=== PATIENT | female | born 1970 | race Caucasian/White ===

== ENCOUNTER 2016-12-10 10:08 | Day surgery (SDC) | payer OTHER ==
[~2016-12-10 10:08] MED LIST: CEFAZOLIN SODIUM 2 GRAM PREMIX 100 ML IV PRN
[2016-12-10] MEDS ORDERED: IV START KIT ONE (10:14)
[2016-12-10] MEDS ORDERED: LACTATED RINGERS 1,000 ML ONE ×2 (10:14→14:07)
[2016-12-10] MEDS ORDERED: CEFAZOLIN SODIUM 2 GRAM PREMIX 100 ML IV ONE (10:15)
[2016-12-10] MEDS ORDERED: SODIUM CHLORIDE 0.9% 50 ML ONE (10:42)
[2016-12-10] MEDS ORDERED: IOPAMIDOL 300 (61%) 30 ML SDV ONE (10:42)
[2016-12-10] MEDS ORDERED: BUPIVACAINE 0.5% W/EPI SDV 30 ML VIAL ONE (10:42)
[2016-12-10] MEDS ORDERED: MIDAZOLAM HCL 5 MG/5 ML VIAL ONE (10:45)
[2016-12-10] MEDS ORDERED: FENTANYL 5 ML ONE (10:45)
[2016-12-10] MEDS ORDERED: SCOPOLAMINE 1.5 MG/72 HR 1 EACH PATCH TD ONE (10:46)
[2016-12-10] MEDS ORDERED: PROMETHAZINE HCL 25 MG/ML VIAL IM PRN (11:15)
[2016-12-10] MEDS ORDERED: LACTATED RINGERS 1,000 ML IV SCH (11:15)
[2016-12-10] MEDS ORDERED: ONDANSETRON 4 MG/2ML 2 ML VIAL IV PRN ×2 (11:15→13:09)
[2016-12-10] MEDS ORDERED: NALOXONE HCL 0.4 MG/ML VIAL IV PRN (11:15)
[2016-12-10] MEDS ORDERED: ATROPINE SULFATE 0.4 MG/1 ML VIAL IV PRN (11:15)
[2016-12-10] MEDS ORDERED: PROPOFOL 20 ML IV ONE (11:25)
[2016-12-10] MEDS ORDERED: ROCURONIUM BROMIDE 10 MG/ML DOSE IV ONE (11:25)
[2016-12-10] MEDS ORDERED: DEXAMETHASONE SOD PHOS 4 MG/1 ML VIAL ONE (11:25)
[2016-12-10] MEDS ORDERED: FAMOTIDINE 10 MG/ML 2ML VIAL ONE (11:25)
[2016-12-10] MEDS ORDERED: NEOSTIGMINE METHYLSULFATE 1 MG/ML DOSE ONE (11:36)
[2016-12-10] MEDS ORDERED: GLYCOPYRROLATE 0.2 MG/ML 1ML VIAL ONE (11:36)
[2016-12-10] MEDS ORDERED: FENTANYL 100 MCG/2 ML VIAL ONE ×2 (11:55→12:35)
[2016-12-10] MEDS ORDERED: SURGICEL 3X4 1 EACH PACKET ONE (12:07)
--- NOTE | 2016-12-10 12:07 | RAD ---
Exam: Intraoperative cholangiogram COMPARISON: CT 11/12/2016 and ultrasound 11/09/2016 INDICATION: Intraoperative cholangiogram performed following cholecystectomy. Findings: Fluoroscopy was provided for Dr. Kuhn. 13.4 seconds of fluoroscopy time was utilized. 4 static images were sent for interpretation. These images demonstrate cholecystectomy clips. The common bile duct is normal in caliber and contour and no filling defects are identified. Visualized intrahepatic biliary tree is also normal. Contrast is seen within the duodenum. IMPRESSION: Fluoroscopy was provided for Dr. Kuhn for intraoperative cholangiogram.
[2016-12-10] MEDS ORDERED: PROMETHAZINE HCL 25 MG/ML VIAL ONE (12:35)
[2016-12-10] MEDS ORDERED: HYDROMORPHONE HCL 1 MG/ML SYRINGE ONE (12:35)
[2016-12-10] MEDS: FENTANYL 100 MCG/2 ML VIAL IV PRN ×2 (12:37→12:53)
[2016-12-10] MEDS: HYDROMORPHONE HCL 1 MG/ML SYRINGE IV PRN ×2 (12:40→13:13)
--- NOTE | 2016-12-10 12:57 | OP ---
Ruth Ray [id number] DATE: 12/10/2016 PREOPERATIVE DIAGNOSIS: Chronic cholecystitis and cholelithiasis. POSTOPERATIVE DIAGNOSIS: Chronic cholecystitis and cholelithiasis. PROCEDURE: Laparoscopic cholecystectomy with intraoperative cholangiogram. SURGEON: Hermann Kuhn M.D. EXECUTIVE CHAIRMAN: Fer. ANESTHESIA: Joe Brooks, general endotracheal. INDICATION: This is a 45-year-old female who has symptoms of chronic biliary colic who presents for elective cholecystectomy. DESCRIPTION: With informed consent she was taken to the operating room where she was laid supine on the table. General endotracheal anesthetic was administered. The abdomen was prepped and draped in the usual fashion. Local anesthetic was administered in a scar below the umbilicus. Incision was made. The fascia was grasped with Noah clamps and divided with curved Luna scissors. Suture of Surgilon placed on the fascial edges and a Stewart port was placed. A pneumoperitoneum was created. Local anesthetic was administered in the mid epigastrium and along the right lateral abdominal wall. Incisions were made and 5 mm ports were placed. There were adhesions of the gallbladder that were taken down with blunt dissection. The fundus was grasped and retracted cephalad. There seemed to be a large stone down in the infundibulum, this was retracted laterally. There was quite a bit of fat attached in around the cystic structures. Eventually I was able to dissect the cystic duct free circumferentially. A clip was placed. The duct was partially transected. Cholangiogram was obtained showing flow of contrast into the duodenum without filling defect. Contrast was seen refluxing up into the hepatic ducts. The catheter was removed. Two clips were placed on the cystic duct stump and was completed transected. The cystic artery was identified and dissected free. Three clips were placed and it was transected leaving two clips on the stump. The gallbladder was then taken off the liver bed using electrocautery, this was moderately difficult with gallbladder up underneath the liver with some fatty infiltration around it. We did get some bleeding from the liver bed It was not clear if it was a posterior branch off the cystic artery or an aberrant cystic artery up higher in the liver bed. Multiple clips were placed. Eventually we had good hemostasis. The gallbladder was from the liver. We did have a small amount of spillage of bile from the gallbladder. Once it was it was placed within an Endocatch bag and removed through the infraumbilical port site. During the bleeding from the aberrant vessel along the liver bed we did lose approximately 200 mL of blood. This was suctioned and diluted until all irrigation was clear. I did choose to put some Surgicel in the area in case there was some residual oozing. The ports were removed and the pneumoperitoneum was evacuated. The infraumbilical fascial defect was closed with figure of eight sutures of 0 Surgilon. The other fascial defects were small. All the skin wounds were closed with subcuticular 4-0 Monocryl. Dermabond was placed over all incisions because of a tape allergy. She tolerated her procedure and was taken to the recovery room in stable condition. Note was made that needle, instrument, and lap counts were reported as correct at the time of closure. JOB: [id number] CC: Dr. Debbie Tamayo
[2016-12-10] MEDS ORDERED: MORPHINE SULFATE 2 MG/ML SYRINGE IV PRN (13:09)
[2016-12-10] MEDS ORDERED: OXYCODONE HCL 5 MG TABLET PO PRN (13:09)
[2016-12-10] MEDS ORDERED: ACETAMINOPHEN 325 MG TABLET PO PRN (13:09)
[2016-12-10] MEDS ORDERED: MORPHINE SULFATE 10 MG/ML SYRINGE IV PRN (13:16)
[2016-12-10] MEDS ORDERED: MORPHINE SULFATE 4 MG/ML SYRINGE IV PRN (13:16)
[2016-12-10] MEDS ORDERED: ONDANSETRON 4 MG/2ML 2 ML VIAL ONE (14:07)
[2016-12-10] MEDS ORDERED: OXYCODONE HCL 5 MG TABLET ONE (14:43)
== END 2016-12-10 15:40 | disposition home or self-care (01) ==
LOC: SDC 10:08
PROVIDERS: ATTEND Surgery
PROC: 0FT44ZZ Resection of Gallbladder, Percutaneous Endoscopic Approach (ICD-10-PCS; principal; 2016-12-10)
PROC: BF141ZZ Fluoroscopy of Gallbladder, Bile Ducts and Pancreatic Ducts using Low Osmolar Contrast (ICD-10-PCS; 2016-12-10)
DX: K80.10 Calculus of gallbladder with chronic cholecystitis without obstruction (principal); E66.9 Obesity, unspecified; D18.09 Hemangioma of other sites; Z88.5 Allergy status to narcotic agent; Z88.8 Allergy status to other drugs, medicaments and biological substances; Z68.39 Body mass index [BMI] 39.0-39.9, adult
CPT/HCPCS: 47563; 74300; J1170; J3010 ×4; J1100; A9270 ×2; J2550; J2250; J2405 ×2; J7120 ×2; J7030; Q9967; J0690

== ENCOUNTER 2017-01-25 09:32 | Day surgery (SDC) | payer OTHER ==
[~2017-01-25 09:32] MED LIST changes: -CEFAZOLIN SODIUM 2 GRAM PREMIX 100 ML IV PRN; +FENTANYL 250 MCG/5 ML AMP IV PRN; +LACTATED RINGERS 1,000 ML IV SCH; +LIDOCAINE Viscous 2% 15 ML UDCUP PO PRN; +MIDAZOLAM HCL 5 MG/5 ML VIAL IV PRN
[2017-01-25] MEDS ORDERED: MIDAZOLAM HCL 5 MG/5 ML VIAL ONE (10:07)
[2017-01-25] MEDS ORDERED: LIDOCAINE Viscous 2% 15 ML UDCUP ONE (10:08)
[2017-01-25] MEDS ORDERED: FENTANYL 5 ML ONE (10:08)
[2017-01-25] MEDS ORDERED: MIDAZOLAM HCL 1 MG/ML 2ML VIAL ONE (10:52)
[2017-01-25 15:17] LABS: HELICOBACTER PYLORII DETECTION NEGATIVE (NEGATIVE)
--- NOTE | 2017-01-27 09:07 | SURGPATH ---
[facility] [address] [place] [id number] Patient Name: ANITA CARTAGENA MR#: [id number] : 1970 Gender: F Specimen #: [id number] Collected: 01/25/2017 Received: 01/26/2017 Reported: 01/27/2017 Submitting Phys: PAUL DOYLE Copy To Phys: [facility] JUICE GRISSOM Clinical History / Pre-Operative Diagnosis: Epigastric pain, nausea, LLQ pain, constipation, change in bowel pattern, rule out; giardia, celiac sprue, gastritis, colitis Specimen Source / Surgical Procedure Performed: #1 duodenal biopsy, #2 antral biopsy, #3 cecal biopsy, #4 sigmoid biopsy 30 cm Interpretation: 1. DUODENUM, BIOPSY: - NO PATHOLOGIC ABNORMALITY 2. ANTRUM, BIOPSY: - NO PATHOLOGIC ABNORMALITY 3. CECUM, BIOPSY: - NO PATHOLOGIC ABNORMALITY 4. SIGMOID COLON AT 30 CM, BIOPSY: - NO PATHOLOGIC ABNORMALITY Electronically Signed Out Wicho Eli M.D. Gross Description: The specimen is received in four formalin filled containers, labeled with the patient's name. 1. The specimen is labeled "duodenum" and consists of two irregularly shaped fragment(s) of seals tissue aggregating to 0.6 x 0.4 x 0.3 cm. The specimen is entirely submitted in cassette 1A. 2. The specimen is labeled "antrum" and consists of two irregularly shaped fragment(s) of seals tissue aggregating to 0.6 x 0.6 x 0.3 cm. The specimen is entirely submitted in cassette 2A. 3. The specimen is labeled "cecum" and consists of one irregularly shaped fragment(s) of seals tissue aggregating to 0.6 x 0.3 x 0.2 cm. The specimen is entirely submitted in cassette 3A. 4. The specimen is labeled "sigmoid 30 cm" and consists of two irregularly shaped fragment(s) of seals tissue aggregating to 0.5 x 0.3 x 0.3 cm. The specimen is entirely submitted in cassette 4A. Microscopic Description: Microscopic performed. : [id number] 2: [id number] 3: 49307 4: 39370 R10.13 K59.00
== END 2017-01-25 12:00 | disposition home or self-care (01) ==
LOC: SDC 09:32
PROVIDERS: ATTEND Internal Medicine Gastroenterology
PROC: 0DB98ZX Excision of Duodenum, Via Natural or Artificial Opening Endoscopic, Diagnostic (ICD-10-PCS; principal; 2017-01-25)
PROC: 0DB68ZX Excision of Stomach, Via Natural or Artificial Opening Endoscopic, Diagnostic (ICD-10-PCS; 2017-01-25)
PROC: 0DBH8ZX Excision of Cecum, Via Natural or Artificial Opening Endoscopic, Diagnostic (ICD-10-PCS; 2017-01-25)
PROC: 0DBN8ZX Excision of Sigmoid Colon, Via Natural or Artificial Opening Endoscopic, Diagnostic (ICD-10-PCS; 2017-01-25)
DX: K59.8 Other specified functional intestinal disorders (principal); K29.70 Gastritis, unspecified, without bleeding; K29.80 Duodenitis without bleeding; E11.9 Type 2 diabetes mellitus without complications; F41.9 Anxiety disorder, unspecified; E28.2 Polycystic ovarian syndrome; J30.9 Allergic rhinitis, unspecified; Z88.8 Allergy status to other drugs, medicaments and biological substances; Z88.5 Allergy status to narcotic agent; Z79.84 Long term (current) use of oral hypoglycemic drugs
CPT/HCPCS: 87081; 43239; 45380; J3010; J2250 ×2; A9270